=== PATIENT | female | born 1980 | race Two or more races ===

== ENCOUNTER 2018-08-17 03:06 | Emergency (ER) | payer SELFPAY ==
--- NOTE | 2018-08-17 04:46 | ER Document Report ---
ED Eye Complaint - General Chief Complaint: Chemical Exposure in Eye Stated Complaint: EYE PROBLEM Time Seen by Provider: 08/17/18 04:24 Primary Care Provider: SUSAN DAVIS DO [ACTIVE STAFF] - 08/17/18 Notes: Patient is a 38-year-old female that comes to the emergency department for chief complaint of bleach in both eyes, irritation in the eyes, difficulty opening her eyes. She states she was spraying her fridge with bleach using a spray bottle at about 8 PM. Since that time she has had worsening irritation and difficulty opening her eyes. She does not wear contacts or glasses. She denies any other complaints. Daughter at bedside. TRAVEL OUTSIDE OF THE [place] IN LAST 30 DAYS: No - Related Data Allergies/Adverse Reactions: No Known Allergies Allergy (Unverified 06/20/11 11:09) Past Medical History - General Information source: Patient - Social History Smoking Status: Never Smoker Frequency of alcohol use: None Drug Abuse: None Lives with: Family Family History: Reviewed & Not Pertinent Patient has suicidal ideation: No Patient has homicidal ideation: No - Medical History Medical History: Negative Pulmonary Medical History: Denies: Hx Tuberculosis Renal/ Medical History: Reports: Hx Kidney Stones. Denies: Hx Peritoneal Dialysis Past Surgical History: Reports: Hx Tubal Ligation. Denies: Hx Appendectomy, Hx Bowel Surgery, Hx Section, Hx Cholecystectomy, Hx Coronary Artery Bypass Graft, Hx Gastric Bypass Surgery, Hx Herniorrhaphy, Hx Hysterectomy, Hx Mastectomy, Hx Pacemaker, Hx Tonsillectomy - Immunizations Hx Diphtheria, Pertussis, Tetanus Vaccination: - unk Review of Systems - Review of Systems Constitutional: No symptoms reported EENT: See HPI Cardiovascular: No symptoms reported Respiratory: No symptoms reported Gastrointestinal: No symptoms reported Genitourinary: No symptoms reported Female Genitourinary: No symptoms reported Musculoskeletal: No symptoms reported Skin: No symptoms reported Hematologic/Lymphatic: No symptoms reported Neurological/Psychological: No symptoms reported Physical Exam - Vital signs Vitals: Temp Pulse Resp BP Pulse Ox 97.9 F 76 16 133/88 H 99 08/17/18 03:10 08/17/18 03:10 08/17/18 03:10 08/17/18 03:10 08/17/18 03:10 - Notes Notes: GENERAL: Alert, interacts well. No acute distress. HEAD: Normocephalic, atraumatic. EYES: Irritation of both sclera and eyelids bilaterally. No fluorescein uptake, no foreign body, negative Didier sign, normal pupils bilaterally with normal reactions. Normal EOMs. Normal pH testing at 7 bilaterally. ENT: Oral mucosa moist, tongue midline. Oropharynx unremarkable. Airway patent. Nares patent with mild rhinorrhea, no nasal septal hematoma, TM's intact. NECK: Full range of motion. Supple. Trachea midline. LUNGS: Clear to auscultation bilaterally, no wheezes, rales, or rhonchi. No respiratory distress. HEART: Regular rate and rhythm. No murmur ABDOMEN: Soft, non-tender. Non-distended. Bowel sounds present in all 4 quadrants. GENITOURINARY: Deferred EXTREMITIES: Moves all 4 extremities spontaneously. No edema, normal radial and dorsalis pedis pulses bilaterally. No cyanosis. BACK: no cervical, thoracic, lumbar midline tenderness. No saddle anesthesia, normal distal neurovascular exam. Moves all extremities in full range of motion. NEUROLOGICAL: Alert and oriented x3. Normal speech. Cranial nerves II through XII grossly intact. PSYCH: Normal affect, normal mood. SKIN: Warm, dry, normal turgor. No rashes or lesions noted. - HEENT Visual acuity- Right eye: 20/40 Visual acuity- Left eye: 20/50 Visual acuity- Both eyes: 20/25 Corrective lenses worn: No Course - Re-evaluation Re-evalutation: Patient went straight to the flushing station and had her eyes flushed out bilaterally for over 20 minutes. After this patient was significantly improved, states she feels much better, now she is able to open her eyes. Other than mild irritation of the sclera and eyelids, her eye examination is completely unremarkable. pH is [address] Driscoll. 08/17/18 04:[address] Davis. He recommends Polytrim, erythromycin ointment, and follow-up with the tape sewing machine operator in the office later today. I discussed this with patient, patient states satisfaction agreement with plan, she was provided with both medications to go home with from the emergency department. - Vital Signs Vital signs: Temp Pulse Resp BP Pulse Ox 98.0 F 73 15 112/72 99 08/17/18 05:28 08/17/18 05:28 08/17/18 05:28 08/17/18 05:28 08/17/18 05:28 Discharge - Discharge Clinical Impression: Chemical insult, eye Qualifiers: Encounter type: initial encounter Laterality: unspecified laterality Qualified Code(s): T26.90XA - Corrosion of unspecified eye and adnexa, part unspecified, initial encounter Condition: Stable Disposition: HOME, SELF-CARE Additional Instructions: Peterson examen de la vista se ve john en yesika momento. Use las gotas de polytrim (1 gota 4 veces al da lobito 5 palomo) y la pomada (ponga aproximadamente 1 cinta en 4 veces al da lobito 5 palomo). Llame al nmero que figura en la lista para marquita al oculista y volver a verificar. Regrese si est peor (no puede marquita, tiene ms dolor, secrecin de los ojos o si algo no est john). Referrals: SUSAN DAVIS DO [ACTIVE STAFF] - 08/17/18
[2018-08-17] MEDS ORDERED: ERYTHROMYCIN 0.5% OPH OINTMENT 3.5 GM TUBE OU ONE (05:05)
[2018-08-17] MEDS ORDERED: POLYMYXIN B SULFATE/TMP OPH SOLN 10 ML OU ONE (05:07)
[2018-08-17] MEDS ORDERED: ERYTHROMYCIN 0.5% OPH OINT 1 GM UNIT DOSE ONE (05:29)
[2018-08-17 05:31] VITALS: BP 112/72
[2018-08-17] MEDS ORDERED: POLYMYXIN B SULFATE/TMP OPH SOLN 10 ML ONE (05:35)
== END 2018-08-17 05:57 | disposition home or self-care (01) ==
LOC: ER 03:06
DX: T54.91XA Toxic effect of unspecified corrosive substance, accidental (unintentional), initial encounter (principal); T26.90XA Corrosion of unspecified eye and adnexa, part unspecified, initial encounter; Y93.E9 Activity, other interior property and clothing maintenance
CPT/HCPCS: 99283; J3490 ×2

== ENCOUNTER 2018-10-04 06:33 | Emergency (ER) | payer SELFPAY ==
[2018-10-04 06:42] VITALS: BP 121/77
== END 2018-10-04 08:00 | disposition left against medical advice (07) ==
LOC: ER 06:33
DX: Z53.21 Procedure and treatment not carried out due to patient leaving prior to being seen by health care provider (principal)